=== PATIENT | male | born 1950 | race Caucasian/White ===

== ENCOUNTER 2018-09-22 10:37 | Inpatient (IN) | payer MEDICARE, MEDICAID ==
[2018-09-22] MEDS ORDERED: Ondansetron PF 4 MG/2 ML Vial ONE (10:38)
[2018-09-22] MEDS ORDERED: Propofol 1,000 MG/100 ML VIAL IV ONE ×2 (10:57→14:39)
[2018-09-22 11:05] LABS: #Eosinphils 0.1 thou/uL (0.0-0.7); #Lymphocytes 2.2 thou/uL (1.20-3.40); #Monocytes 0.4 thou/uL (0.11-0.59); #Neutrophils 4.3 thou/uL (1.40-6.50); %Basophils 0.3 % (0.0-1.0); %Eosinophils 1.7 % (0.0-10.0); %Lymphocytes 31.5 % (21.0-51.0); %Monocytes 5.2 % (0.0-10.0); %Neutrophils 61.3 % (42.0-75.0); Hemoglobin 12.9 g/dL (14.0-18.0); Mean Corpuscular HGB CONC 32.6 g/dL (32.0-36.0); Mean Corpuscular Hemoglobin 29.8 pg (27.0-31.0); Mean Corpuscular Volume 91.4 fL (78.0-98.0); Mean Platelet Volume 9.5 fL (7.4-10.4); Platelet Count 162 thou/uL (130-400); RBC Distribution Width 13.5 % (11.5-14.5); Red Blood Cell (RBC) Count 4.33 mill/uL (4.70-6.10); White Blood Cell (WBC) Count 7.1 thou/uL (4.8-10.8)
[2018-09-22] MEDS ORDERED: Fentanyl 20 mcg/ml (100 ml CADD) IV PRN (11:07)
[2018-09-22 11:17] LABS: PTT 23.6 SEC (22.9-36.1); Prothrombin Time 12.9 SEC (12.0-14.7)
[2018-09-22 11:18] LABS: Bilirubin Negative (Negative); Blood, Urine Negative (Negative); Clarity CLEAR (Clear); Glucose, Urine (Dipstick) >=1000 mg/dL (Negative); Leukocyte Negative (Negative); Nitrite Negative (Negative); Protein, Urine (Dipstick) 100 mg/dL (Neg-Trace); Specific Gravity, Urine 1.021 (1.002-1.036); Urobilinogen 0.2 mg/dL (0.2-1.0); pH, Urine 7.5 (5.0-9.0)
[2018-09-22 11:19] LABS: Bacteria/HPF None Seen HPF (None Seen); Hyaline Casts/LPF 0-3 HYALINE CAST LPF (0-3 Hyaline); RBC/HPF 0-3 HPF (0-3); Squamous Epithelial 0-3 HPF (0-3); WBC/HPF None Seen HPF (0-3)
[2018-09-22 11:20] LABS: ALT (SGPT) 18 U/L (8-55); AST (SGOT) 17 U/L (5-34); Acetaminophen Less than 6.0 mcg/mL (10.0-30.0); Albumin 3.9 g/dL (3.4-4.8); Alcohol Less than 10 mg/dL (Less than 10); Alkaline Phosphatase 78 U/L (40-150); Anion Gap 15 mmol/L (10-20); BUN (Urea Nitrogen) 21 mg/dL (8.4-25.7); Bilirubin, Total 1.8 mg/dL (0.2-1.2); CK (CPK) 31 U/L (30-200); Calc. Creatinine Clearance 0 mL/min (70-130); Calcium 9.1 mg/dL (7.8-10.44); Carbon Dioxide 26 mmol/L (23-31); Chloride 96 mmol/L (98-107); Estimated GFR-MDRD 68; Globulin 3.5 g/dL (2.4-3.5); Glucose 462 mg/dL (80-115); Lipase 30 U/L (8-78); Potassium 3.9 mmol/L (3.5-5.1); Protein, Total 7.4 g/dL (5.8-8.1); Salicylate Less than 8.0 mg/dL (15.0-30.0); Sodium 133 mmol/L (136-145)
[2018-09-22 11:27] LABS: CKMB 0.7 ng/mL (0-6.6); Troponin I Less than 0.010 ng/mL (< 0.028)
[2018-09-22 11:29] LABS: Amphetamine Not Detected (NotDetected); Barbiturates Screen Not Detected (NotDetected); Benzodiazepine Screen Not Detected (NotDetected); Cocaine Metabolite Screen Not Detected (NotDetected); Medtox Control Line Valid? VALID (VALID); Medtox Reader # READER 4; Methadone Not Detected (NotDetected); Methamphetamine Not Detected (NotDetected); Opiate Screen Not Detected (NotDetected); Oxycodone Screen Not Detected (NotDetected); Phencyclidine (PCP) Not Detected (NotDetected); THC/Cannabinoid Screen Not Detected (NotDetected); Tricyclic Screen Not Detected (NotDetected)
--- NOTE | 2018-09-22 11:42 | RAD ---
CHEST 1 VIEW: HISTORY: Stroke alert. Chest pain. COMPARISON: Chest radiograph 04/20/2013. FINDINGS: The patient is intubated with endotracheal tube tip above the [place] approximately 2.5 cm. Lungs are hypoinflated with vascular crowding. No pneumothorax or large effusion. IMPRESSION: 1. Given limitations of this exam, mild lung hypoinflation. 2. Endotracheal tube tip above the orlando 2.5 cm. POS: [facility]
[2018-09-22 11:43] LABS: Actual Bicarbonate (HCO3a) 28.6 mEq/L (22-28); Analyzer IN Cardio ER; Base Excess (BEa) 2.2 mEq/L (-2.0 to +3.0); CO2 Tension 52.2 mmHg (35.0-45.0); Calcium, Ionized 1.11 mmol/L (1.12-1.30); Carboxyhemoglobin (COHb) 0.6 gm% (0.0-3.0); Hemoglobin (Hb) 12.6 g/dL (14.0-18.0); O2 Tension (PaO2) 102.8 mmHg (> 80.0); Potassium - ABG Lab 4.35 mmol/L (3.70-5.30); pH, Arterial 7.36 (7.35-7.45)
[2018-09-22 11:46] LABS: Puncture Site L.R.
--- NOTE | 2018-09-22 11:58 | CT ---
BRAIN CT WITHOUT IV CONTRAST: History: 68-year-old male with history of altered mental status. FINDINGS: There is a huge right intracerebral hemorrhage measuring approximately 5.4 x 7.7 cm with approximatel y 0.8 cm of midline shift to the left. There is fairly extensive intraventricular hemorrhage as well as some surrounding brain edema. There is dilatation of the lateral ventricles, particularly the left lateral ventricle temporal horn. IMPRESSION: Huge intraparenchymal hemorrhage with 0.8 cm midline shift to the left with extensive intraventricula r hemorrhage and some associated hydrocephalus including marked rotation of the temporal horn of the left lateral ventricle. Findings were discussed with Dr. Jacobo in the Emergency Department at 11:24 a.m. Code CR POS: [facility]
--- NOTE | 2018-09-22 12:02 | CT ---
CERVICAL SPINE CT SCAN WITHOUT IV CONTRAST: History: Cervical injury, altered mental status, brain hemorrhage. FINDINGS: No evidence for acute fracture or facet dislocation. Mild generalized spondylosis. NG tube and endotr acheal tubes are in position and at least partially seen. IMPRESSION: No fracture or facet dislocation. Generalized spondylosis. POS: [facility]
[2018-09-22] MEDS ORDERED: niCARdipine HCl 25 MG in Sodium Chloride 0.9% 250 ML 240 ML IVPB PRN ×2 (13:37→15:24)
[2018-09-22 13:59] VITALS: BMI 40.9
[2018-09-22] MEDS ORDERED: Dextrose 50% Abboject 50 ML SYRINGE SLOW IVP PRN (14:34)
[2018-09-22] MEDS ORDERED: HumaLOG 300 UNITS/3 ML VIAL SC PRN ×2 (14:34)
[2018-09-22] MEDS ORDERED: Dextrose 5% in Water 1,000 ML IV PRN (14:34)
[2018-09-22] MEDS ORDERED: Lacri-Lube Opth Oint 3.5 GM TUBE EA EYE PRN (14:38)
[2018-09-22] MEDS ORDERED: DISCONTINUE PREVIOUS NARCOTIC PAIN MEDICATIONS AND BENZODIAZEPINES FS SCH (14:42)
[2018-09-22] MEDS ORDERED: fentaNYL Citrate/PF 2,000 MCG in Sodium Chloride 0.9% 60 ML IV SCH (14:42)
[2018-09-22] MEDS ORDERED: Fentanyl BOLUS 250 ML IVPB PRN (14:42)
[2018-09-22] MEDS ORDERED: Propofol BOLUS 1,000 MG/100 ML VIAL IV PRN (14:42)
[2018-09-22] MEDS ORDERED: Lorazepam 2 MG/ML VIAL SLOW IVP PRN ×2 (14:42→19:37)
[2018-09-22] MEDS ORDERED: Propofol 1,000 MG/100 ML VIAL IV PRN (14:42)
[2018-09-22] MEDS ORDERED: Morphine 4 MG/ML VIAL SLOW IVP PRN (14:43)
[2018-09-22] MEDS ORDERED: Ventilator Sedation Protocol 1 EACH FS SCH (14:45)
[2018-09-22] MEDS ORDERED: niCARdipine HCl 25 MG in Sodium Chloride 0.9% 250 ML 240 ML IVPB SCH (14:45)
--- NOTE | 2018-09-22 15:24 | HP ---
CHIEF COMPLAINT: Altered mental status. HISTORY OF PRESENT ILLNESS: The patient is currently intubated and is unable to give a history, and currently, there is no family at the bedside to offer any additional information. I got some informa tion from the nurse taking care of him, who had gotten some report from the ER physician, but ciro cruz the patient had been at home, his had seen him earlier today, and he seemed normal. She demi t to go run some errands and then came back, and apparently found him unresponsive with agonal breath ing. She called EMS and he was brought to the emergency room and he was unconscious and unresponsive . His initial blood pressure was 230/120. He was intubated and a CT scan of the brain was done. Th e CT scan of the brain showed a very large intracranial hemorrhage with hemorrhage into the ventricle s with a midline shift. Neurosurgery was consulted, and further recommendations are per the neurosur gical team. He is being admitted to the ICU currently. REVIEW OF SYSTEMS: This is unobtainable due to the patient being intubated and on the ventilator. PAST MEDICAL HISTORY: Significant for coronary artery disease; diabetes mellitus, type 2; hyperlipid emia. PAST SURGICAL HISTORY: He has a history of low back surgery and a hernia repair. ALLERGIES: No known drug allergies. SOCIAL HISTORY: He formerly used alcohol. He apparently quit 15 years ago. No tobacco use. He is . Other social history is unobtainable. FAMILY HISTORY: Unobtainable due to the patient being intubated. MEDICATIONS: Were taken from a bag that was with the patient and include Vascepa 1 gram daily, hydra lazine 100 mg t.i.d., vitamin B12, aspirin 81 mg daily, Plavix 75 mg daily, lisinopril/hydrochlorothi azide 20/12.5 twice a day, metoprolol 25 mg twice daily, glyburide 5 mg twice a day, Klor-Con 8 mEq t wice a day, Lantus insulin unknown dose, metformin 1000 mg twice daily, and Lasix 40 mg twice a day. PHYSICAL EXAMINATION: GENERAL: He is obtunded, unable to assess orientation. He is obese. Normally, he has normal develo pment. VITAL SIGNS: Blood pressure was 202/85; heart rate 77; respiratory rate of 20; temperature, he is af ebrile. HEENT: His right pupil is dilated and very sluggish to very little reaction. The left pupil was mor e pinpoint. NECK: He has extensive subcutaneous adipose tissue. Therefore, I was unable to assess any bruits or hear any bruits, and there was no appreciable adenopathy, very difficult to determine. LUNGS: Clear to auscultation. There was no wheezing, no rales, no rhonchi. CARDIOVASCULAR: He had a normal S1 and S2. I did not appreciate an S3 or S4. He did have a 2/6 sys tolic murmur. ABDOMEN: Obese, it is soft, it is nontender and nondistended. There is no rebound, no guarding, no organomegaly. EXTREMITIES: He has got trace pedal edema. No muscle tenderness or calf tenderness. No joint effus ion, no warmth. He has got 2+ dorsalis pedis pulses. NEUROLOGIC: Again, he is obtunded. He does not have any spontaneous movement. The right arm has so me extensor flexion. SKIN AND INTEGUMENT: He did have a pearly nodule on the right ankle, but no other skin lesions or ra shes. LABORATORY DATA: On lab and x-ray, he had a CT scan of the brain which, by my reading, you can see a large intracranial hemorrhage with blood in the ventricle as well as a midline shift. His EKG was s inus rhythm. The rate is in the 70s with no ST-wave changes. His sodium is 133, potassium 3.9, chlo ride is 96, CO2 is 26, BUN of 21, creatinine 1.08, glucose is 462, total bilirubin was 1.8, troponin is less than 0.010. The white blood cell count 7.1, hemoglobin 12.9, hematocrit is 39.6, platelet co unt is 162. INR is 1.0. ASSESSMENT AND PLAN: This is a 68-year-old gentleman, who was brought to the emergency room obtunded with an elevated blood pressure and findings of an intracranial hemorrhage. His blood pressure is e xtremely elevated, and therefore, this is likely the result of a hypertensive crisis or hypertensive bleed. 1. For intracranial hemorrhage, Neurosurgery has already been consulted and we await further recomme ndations. He has been placed on a nicardipine drip. 2. Hypertension. Again, hypertensive emergency. Again, nicardipine drip. We will titrate this for a goal of 140 systolic blood pressure or less. 3. Diabetes mellitus. We will place him on a long-acting insulin if necessary. 4. No deep venous thrombosis prophylaxis due to bleeding, and gastrointestinal prophylaxis with Pepc id. 5. Awaiting family arrival, as the patient's prognosis is very poor and it is possible that he may n ot survive this bleed and if he does that he would have significant disability.
--- NOTE | 2018-09-22 15:42 | CON ---
DATE OF CONSULTATION: 09/22/2018 SERVICE: Pulmonary Medicine. REASON FOR CONSULTATION: ICU patient. HISTORY OF PRESENT ILLNESS: The patient is a 68-year-old white male with past medical history significant for essentially nothing. He was in his usual is a family significant for hypertension. He was in his usual state of health when he had an abrupt onset of neurologic changes. He was subsequently brought to the emergency department. A CT of the head demonstrated a hemorrhagic CVA. He was intubated for airway protection. He was subsequently tucked into the ICU. Neurosurgery evaluated the patient, but is suggesting that there is no intervention is currently indicated. He cannot provide any additional elements of the history. PAST MEDICAL HISTORY: 1. Type 2 diabetes mellitus. 2. Hypertension. 3. Dyslipidemia. 4. Coronary artery disease. PAST SURGICAL HISTORY: 1. Low back surgery. 2. Herniorrhaphy. 3. History of PCI. ALLERGIES: No known drug allergies. MEDICATIONS: List of his inpatient medications was reviewed. No specific updates were made at this time. FAMILY HISTORY: Noncontributory. SOCIAL HISTORY: Previously, there was no significant alcohol, tobacco or illicit drug use. This was based on admission H&P from review. REVIEW OF SYSTEMS: This cannot be obtained as the patient is currently comatose. PHYSICAL EXAMINATION: HEENT: Normocephalic, atraumatic. Sclerae are white, conjunctivae pink. Oral mucosa is moist without lesions. LUNGS: Decent air entry is present. There is a prolonged expiratory phase. Wheezing is present. HEART: Normal rate, regular. ABDOMEN: Soft, nontender, nondistended. Bowel sounds are positive. MUSCULOSKELETAL: No cyanosis or clubbing. There is trace pitting in the bilateral lower extremities. NEUROLOGIC: His right pupil was blown and dilated nonreactive. His left pupil is fixed and nonreactive. He postures with noxious stimuli to the left upper extremity. He does not move his right upper extremity. His bilateral lower extremities withdraw from noxious stimuli, but it appears to have more of a cross extensor reflex type of motion. He has upgoing Babinskis bilaterally. LABORATORY DATA: WBC 7.1, hemoglobin 12.9, platelets 162,000. INR 1.0. A pH 7.36, pCO2 of 52, pO2 of 102 on 60% FiO2 at that time. Basic metabolic profile , liver function studies were otherwise unremarkable. His total bilirubin is 1.8. Glucose 415, troponin lower than the assay limit, BNP 68, lactate 2.0. Lipase is negative. Urinalysis is positive for glycosuria and proteinuria. Urine drug screen is negative. IMAGING: CT of the brain demonstrates a very large intraparenchymal hemorrhage with intraventricular extension and likely evolving hydrocephalus. Significant midline shift is identified. Chest x-ray demonstrates endotracheal tube is in excellent position. This is an underpenetrated film. That being said, I do not see any obvious acute pleural parenchymal abnormalities. Lung volumes are small. ASSESSMENT: 1. Chronic hypercapnic respiratory failure. 2. Acute hypoxic respiratory failure. 3. Intraparenchymal hemorrhage with intraventricular extension. 4. Type 2 diabetes mellitus. DISCUSSION AND PLAN: I will schedule nebulized medications as the patient has a prolonged expiratory phase. We will watch for signs of infection. If he develops any additional SIRS criteria, empiric antibiotics directed at aspiration related diseases will be initiated. Multiple modifications were made to the ventilator. Namely, I backed off on the rate just a touch to mirror what he was on during the ABG. The injury to the brain is absolutely devastating. We will see if we can support him over the next 24-48 hours to see what kind of neurologic changes he makes. Family will be updated at bedside once they are available. Pulmonary Critical Care will follow along during this case. Palliative Care consultation will be initiated. Critical care time: 30 minutes. BRUNA
--- NOTE | 2018-09-22 18:44 | CON-2 ---
DATE OF CONSULTATION: 09/22/2018 Lucien Ruby PA-C, dictating for Dr. Harjeet Roche. This is a 30-minute his initial patient evaluation with greater than 50% of the exam was spent in cou nseling and coordinating patient care. Remainder of the exam spent in review of patient's medical re cords and appropriate imaging studies. CHIEF COMPLAINT: Altered mental status with a catastrophic right intraparenchymal hemorrhage. HISTORY OF PRESENT ILLNESS: Mr. Ram is a 68-year-old male who presents to [facility] for the above complaints. According to the patient's daughter who is at bedside, the patient's mother went to run an errand and came back within an hour and found the patient at home unresponsive. She called 911 and the patient was brought to [facility]. Upon arrival, he had diff iculty protecting his airway. He was moving all 4 extremities spontaneously, but not formally follow ing commands. Patient is currently on 81 mg aspirin and Plavix for history of heart stents roughly 3 years ago. It is unclear according to the patient's family if he has a history of cerebrovascular a ccident. A head CT was obtained showing a very large right-sided intraparenchymal hemorrhage with ex tension to the ventricles, likely hypertensive related. The patient does have type 2 diabetes as wel l as hypertension. According to the patient's daughter. PHYSICAL EXAMINATION: The patient currently a GCS 6T E1, V1 in the wire. He does have corneal refle xes and a gag reflex; however, his pupils are fixed and dilated at roughly 5 mm. He withdraws to darell nful stimulus in all 4 extremities. He is currently over-breathing the vent. He is currently overbr eathing the ventilator. IMPRESSION: 1. Altered mental status with large right intraparenchymal hemorrhage. 2. Extension into the ventricles, likely hypertension. 3. On Plavix and aspirin for history of heart stents in 2014. PLAN: I discussed the patient's case and imaging with Dr. Roche. Unfortunately, the patient has pereira ffered a catastrophic right intraparenchymal hemorrhage that is nonoperative. Again, surgery is not an option given the fact that the size and the location of the bleed and any type of Neurosurgery wou ld leave the patient more devastated than this current bleed. I have discussed this at length with t he patient's daughter and our Hospitalist team has admitted the patient likely to go to inpatient [facility]. The patient's is unavailable as she has had an exacerbation of her COPD, so the daughter will help relay this information to her family members. The patient's brother is on his way from [facility] in the patient's brother is also on his way. I have also discussed the patient's care with his nursing team. Likely, systolic blood pressure to be less than 150 and head of bed elevated at 30 deg yonatan. Again, the patient's daughter understands that this is a catastrophic hemorrhage that is not a menable to surgery. Please call with any questions, otherwise Neurosurgery will sign off.
[2018-09-22] MEDS ORDERED: Morphine 4 MG/ML VIAL SLOW IVP SCH (20:00)
[2018-09-22] MEDS ORDERED: Famotidine/PF 20 mg/2ml Vial SLOW IVP SCH (21:00)
[2018-09-22] MEDS: Morphine 4 MG/ML VIAL SLOW IVP PRN (21:26)
[2018-09-23] MEDS: Morphine 4 MG/ML VIAL SLOW IVP PRN (03:05)
[2018-09-23 05:42] LABS: Anion Gap 15 mmol/L (10-20); BUN (Urea Nitrogen) 25 mg/dL (8.4-25.7); Calc. Creatinine Clearance 44 mL/min (70-130); Calcium 8.7 mg/dL (7.8-10.44); Carbon Dioxide 28 mmol/L (23-31); Chloride 98 mmol/L (98-107); Estimated GFR-MDRD 21; Glucose 380 mg/dL (80-115); Potassium 3.7 mmol/L (3.5-5.1); Sodium 137 mmol/L (136-145)
[2018-09-23 06:08] LABS: #Basophils 0.1 thou/uL (0.0-0.2); #Eosinphils 0.1 thou/uL (0.0-0.7); #Lymphocytes 2.1 thou/uL (1.20-3.40); #Monocytes 0.9 thou/uL (0.11-0.59); #Neutrophils 7.6 thou/uL (1.40-6.50); %Basophils 0.6 % (0.0-1.0); %Eosinophils 0.5 % (0.0-10.0); %Lymphocytes 19.9 % (21.0-51.0); %Monocytes 8.1 % (0.0-10.0); %Neutrophils 70.9 % (42.0-75.0); Hemoglobin 11.8 g/dL (14.0-18.0); Mean Corpuscular HGB CONC 32.6 g/dL (32.0-36.0); Mean Corpuscular Hemoglobin 29.5 pg (27.0-31.0); Mean Corpuscular Volume 90.4 fL (78.0-98.0); Mean Platelet Volume 9.8 fL (7.4-10.4); Platelet Count 210 thou/uL (130-400); RBC Distribution Width 13.7 % (11.5-14.5); RBC Morphology Normal; Red Blood Cell (RBC) Count 4.02 mill/uL (4.70-6.10); White Blood Cell (WBC) Count 10.7 thou/uL (4.8-10.8)
[2018-09-23 07:32] VITALS: TEMP 102.1
--- NOTE | 2018-09-23 08:14 | PRG ---
DATE OF SERVICE: 09/23/2018 This is a 30 minute hospital visit note in which 30 minutes were spent in review of the imaging, keisha rd, evaluation and examination of patient, and formulation of plan. Greater than 50% of the time was spent in counseling. CHIEF COMPLAINT: Large catastrophic multilevel hemorrhage with midline shift, intraventricular exten daniela and neurologic decline on Plavix. HISTORY OF PRESENT ILLNESS: I reviewed the notes of my colleague Lucien Ruby PA-C, and agree wit h its content. Mr. Ram is a 68-year-old man on Plavix with the aforementioned very large hemorr emily over 8 cm in size with midline shift, intraventricular extension and hydrocephalus. He presente d with a moribund exam and was intubated. PHYSICAL EXAMINATION: He is nonresponsive to noxious stimuli with midposition pupils that are fixed. He is intubated. Family is en route. His palliative care has been notified. IMPRESSION AND PLAN: His hemorrhage is very large and incompatible with survival. I have recommende d against intervention as a surgery here would bring little to no improvement in quality of life. Th ere is no family currently available, although Dr. Trujillo and Ms. Ruby have met with the family an d let them know our recommendation of comfort care. DIAGNOSES: Large catastrophic multilobar hemorrhage on Plavix with intraventricular extension, midli ne shift and hydrocephalus.
--- NOTE | 2018-09-23 09:54 | PDOC.PN ---
- Subjective Encounter Start Date: 09/23/18 Encounter Start Time: 09:53 Mr. Ram was seen today in follow-up of acute ICH. He is intubated. There has been no significant change overnight. - Objective Resuscitation Status: Resuscitation Status DNR:Do Not Resuscitate MAR Reviewed: Yes Vital Signs & Weight: Vital Signs (12 hours) Temp Pulse Resp BP 09/23/18 07:05 84 75/44 L 09/23/18 07:00 102.1 F H 09/23/18 06:00 21 H 09/23/18 04:00 97.3 F L 24 H 09/23/18 02:54 81 09/23/18 02:00 24 H 09/23/18 00:10 83 09/23/18 00:00 23 H 09/22/18 22:00 97.3 F L 22 H Weight Weight 285 lb 7.978 oz Most Recent Monitor Data Heart Rate from ECG 124 NIBP 77/48 NIBP BP-Mean 57 Respiration from ECG 15 SpO2 92 I&O: 09/22/18 09/23/18 09/24/18 06:59 06:59 06:59 Intake Total 423 0 Output Total 2900 0 Balance -2477 0 Result Diagrams: 09/23/18 04:22 09/23/18 04:22 Additional Labs: Accuchecks 09/22/18 10:46 POC Glucose 415 H Phys Exam - Physical Examination HEENT: PERRLA Respiratory: no rales, no rhonchi, clear to auscultation bilateral Cardiovascular: RRR, no significant murmur, no rub Gastrointestinal: soft, non-tender, no distention, positive bowel sounds Musculoskeletal: pulses present, edema present Dx/Plan (1) Intracranial hemorrhage Code(s): I62.9 - NONTRAUMATIC INTRACRANIAL HEMORRHAGE, UNSPECIFIED Status: Acute (2) Hypertensive crisis Code(s): I16.9 - HYPERTENSIVE CRISIS, UNSPECIFIED Status: Acute (3) Diabetes mellitus type 2 in obese Code(s): E11.69 - TYPE 2 DIABETES MELLITUS WITH OTHER SPECIFIED COMPLICATION; E66.9 - OBESITY, UNSPECIFIED Status: Acute - Plan * ICH- this was massive, and Neurosurgery Evaluation noted * HTN- blood pressure is now hypotensive without medication * DM- blood glucose is stable * Awaiting for family to decide on whether or not to withdraw care.
[2018-09-23 10:41] VITALS: BP 65/45
--- NOTE | 2018-09-23 15:05 | PRG ---
DATE OF SERVICE: 09/23/2018 SERVICE: Pulmonary Medicine. INTERVAL HISTORY: Patient is doing fine from respiratory standpoint. Neurologically, however, thing s have not improved at all. There are no significant overnight events. Otherwise, there has been no change to his condition. I have had a conversation with the family this morning. They would actual ly like to transition over comfort care only. Extubation will be done as soon as the family is ready . PHYSICAL EXAMINATION: VITAL SIGNS: T-max 102.1, pulse 117, blood pressure 77/47, respirations 25, saturation 94% on 30% FI O2 and a PEEP of 5. GENERAL: Patient is intubated. He is requiring no sedation, but nonresponsive. HEENT: Normocephalic, atraumatic. Sclerae are white, conjunctivae pink. Oral and nasal mucosa is m oist without lesions. LUNGS: Excellent air entry. There is no prolonged expiratory phase or wheezing present. HEART: Normal rate, regular. ABDOMEN: Soft, nontender, nondistended. Bowel sounds are positive. MUSCULOSKELETAL: No cyanosis or clubbing. There is a mild pitting in the bilateral lower extremitie s. NEUROLOGIC: His pupils are fixed and dilated. Doll's eyes are abnormal. He is overbreathing the ve ntilator, but does not demonstrate a gag or a cough. He is not withdrawing from noxious stimuli. He is no longer posturing in upper or lower extremities to noxious stimuli. LABORATORY DATA: WBC 10.7, hemoglobin 11.8, platelets 210,000. Creatinine 2.98 and up trending. [facility] metabolic profile is otherwise unremarkable. Lactate 2.0. Culture results remain negative to da te. ASSESSMENT: 1. Intraparenchymal hemorrhage with intraventricular extension and hydrocephalus. 2. Chronic hypercapnic respiratory failure. 3. Acute hypoxic respiratory failure, improving. 4. Type 2 diabetes mellitus. 5. Acute kidney injury. DISCUSSION AND PLAN: Patient had a catastrophic injury to the brain. As such, the patient's family would like to transition over comfort only. When the family is ready, we will extubate. is ex pected during this hospital stay. CRITICAL CARE TIME: 30 minutes.
--- NOTE | 2018-09-25 12:18 | EKG ---
Test Reason : Blood Pressure : / mmHG Vent. Rate : 088 BPM Atrial Rate : 088 BPM P-R Int : 192 ms QRS Dur : 092 ms QT Int : 374 ms P-R-T Axes : 040 024 065 degrees QTc Int : 452 ms Normal sinus rhythm Normal ECG Confirmed by BRENTON GERARDO ([id number]), school photograph editor ROSI FONSECA ([id number]) on 09/25/2018 12:17:34 PM Referred By: Confirmed By:BRENTON GERARDO
--- NOTE | 2018-09-29 05:38 | DIS ---
SUMMARY DATE OF ADMISSION: 09/22/2018 DATE OF : 09/23/2018 DIAGNOSES: Include, 1. Acute intracranial hemorrhage. 2. Hypertensive crisis. 3. Diabetes mellitus. 4. Hypertension. 5. Hyperlipidemia. 6. Coronary artery disease. PROCEDURES DONE DURING ADMISSION: The patient had a CT scan of the brain showing acute intracranial hemorrhage with 0.8 cm midline shift to the left with extensive intraventricular hemorrhage and some associated hydrocephalus including marked rotation of the temporal horn of the lateral ventricle. Th e patient had a CT scan of the cervical spine showing no fracture or facet dislocation. ALLERGIES: No known drug allergies. HOSPITAL COURSE: Mr. Ram was a 68-year-old gentleman who was brought to the emergency room afte r he was found down at home. The patient apparently had been seen normal by his earlier in the day. She had gone to run some errands and then came back and found him unresponsive with agonal rafael thing. EMS was called and he was brought to the emergency room, his initial blood pressure was 230/1 20. He was intubated to protect his airway. A CT scan of the brain was done. It showed a very larg e intracranial hemorrhage and treated into the ventricles with hydrocephalus and midline shift. Neur osurgery was consulted and he was admitted. It was felt that his bleed was too massive and he was no t going to survive the . Therefore, no surgery was planned. The family was informed of the sit uation. The following day, the family decided to terminally extubate the patient. He shortly t hereafter as a result of a massive intracranial hemorrhage likely due to malignant hypertension.
== END 2018-09-23 11:41 | disposition expired | DRG 64 ==
LOC: ERS 10:37 → CCU 13:28
PROVIDERS: ADMIT Surgery; ATTEND Surgery
PROC: 5A1935Z Respiratory Ventilation, Less than 24 Consecutive Hours (ICD-10-PCS; principal; 2018-09-22)
PROC: 0BH17EZ Insertion of Endotracheal Airway into Trachea, Via Natural or Artificial Opening (ICD-10-PCS; 2018-09-22)
DX: I62.9 Nontraumatic intracranial hemorrhage, unspecified (principal); J96.01 Acute respiratory failure with hypoxia; G91.9 Hydrocephalus, unspecified; J96.12 Chronic respiratory failure with hypercapnia; N17.9 Acute kidney failure, unspecified; Z68.41 Body mass index [BMI] 40.0-44.9, adult; I10 Essential (primary) hypertension; E11.9 Type 2 diabetes mellitus without complications; E66.9 Obesity, unspecified; R29.726 NIHSS score 26; I25.10 Atherosclerotic heart disease of native coronary artery without angina pectoris; E78.5 Hyperlipidemia, unspecified; Z51.5 Encounter for palliative care
CPT/HCPCS: 31500; 36415; 36416; 51702; 70450; 71045; 72125; 80048; 80053; 80306; 80307; 81003; 81015; 82550; 82553; 82805; 83605; 83690; 83880; 84484; 85025; 85610; 85730; 86850; 86900; 86901; 87040; 87086; 93005; 94002; 94003; 94640; 96365; 96366; J2060; J2270; J2405; J2704; J3010; J7050; J7620